=== PATIENT | male | born 1965 | race Caucasian/White ===

== ENCOUNTER 2024-10-10 13:30 | Outpatient (RCR) | payer BC, SELFPAY | END 2024-10-24 14:00 | disposition home or self-care (01) | LOC: HO.CR 13:30 | PROVIDERS: PCP Student in an Organized Health Care Education/Training Program; Visit Provider Student in an Organized Health Care Education/Training Program | DX: I21.4 Non-ST elevation (NSTEMI) myocardial infarction (principal) | CPT/HCPCS: 93798 ==